=== PATIENT | male | born 1930 | race Caucasian/White ===

== ENCOUNTER 2018-07-31 13:02 | Inpatient (IN) ==
[2018-07-31 14:08] LABS: Basophils % 0.2 % (0.0-0.8); Eosinophils % 0.1 % (0.00-10.9); Hematocrit 44.3 VOL% (42.0-52.0); Hemoglobin 14.3 GM/DL (14.0-18.0); Immature Granulocytes % 0.4 %; Immature Granulocytes Absolute 0.05 #; Lymphocytes % 8.2 % (21.2-54.2); Mean Corpuscular HGB Conc 32.3 GM/DL (32-36); Mean Corpuscular Hemoglobin 31 PG (27-34); Mean Corpuscular Volume 96.9 FL (87-102); Mean Platelet Volume 11.5 FL (9.6-12.0); Monocytes # 1.8 10*3/uL (0.11-0.8); Monocytes % 14.4 % (1.7-12.7); Neutrophils # 9.8 10*3/uL (1.4-7.4); Neutrophils % 76.7 % (38.7-73.9); Platelet Count 106 T/CUMM (130-400); Red Blood Count 4.57 MC/CUMM (3.8-5.5); Red Cell Distribution Width 14.1 % (9.3-17.3); White Blood Count 12.8 T/CUMM (4-12)
[2018-07-31 14:33] LABS: Albumin 2.6 G/DL (3.4-5.0); Bilirubin,Total 1.3 MG/DL (0.2-1.0); Calcium 9.7 MG/DL (8.5-10.1); Osmolality,Calculated 286.4 MOS/KG (273-304); Total Protein 6.7 G/DL (6.4-8.3)
[2018-07-31] MEDS ORDERED: ACETAMINOPHEN 325 MG TABLET PO PRN (14:53)
[2018-07-31] MEDS ORDERED: ONDANSETRON 4 MG/2 ML VIAL IV PRN (14:53)
[2018-07-31] MEDS: IPRATROPIUM 500 MCG/2.5 ML NEB RESP TX SCH (21:50)
[2018-07-31] MEDS: BUDESONIDE 0.5 MG/2 ML NEB RESP TX SCH (21:50)
[2018-07-31] MEDS: FORMOTEROL 20 MCG/2 ML NEB RESP TX SCH (21:50)
[2018-07-31] MEDS: DOCUSATE SODIUM 100 MG CAPSULE PO SCH (22:15)
[2018-07-31] MEDS: TOLTERODINE LA 4 MG CAPSULE PO SCH (22:15)
[2018-07-31] MEDS: DONEPEZIL 10 MG TABLET PO SCH (22:15)
[2018-07-31] MEDS: SIMVASTATIN 40 MG TABLET PO SCH (22:15)
[2018-07-31] MEDS: cycloSPORINE OPH EMUL 1 VIAL BOTH EYES SCH (22:16)
[2018-07-31] MEDS: MEMANTINE 10 MG TABLET PO SCH (22:16)
[2018-08-01 05:49] LABS: Basophils % 0.3 % (0.0-0.8); Eosinophils # 0.1 10*3/uL (0.0-0.87); Eosinophils % 0.5 % (0.00-10.9); Hematocrit 39.8 VOL% (42.0-52.0); Hemoglobin 12.8 GM/DL (14.0-18.0); Immature Granulocytes % 0.6 %; Immature Granulocytes Absolute 0.06 #; Lymphocytes # 1.3 10*3/uL (1.4-4.0); Lymphocytes % 12.2 % (21.2-54.2); Mean Corpuscular HGB Conc 32.2 GM/DL (32-36); Mean Corpuscular Hemoglobin 31 PG (27-34); Mean Corpuscular Volume 96.6 FL (87-102); Mean Platelet Volume 12.5 FL (9.6-12.0); Monocytes # 1.5 10*3/uL (0.11-0.8); Monocytes % 14.2 % (1.7-12.7); Neutrophils # 7.8 10*3/uL (1.4-7.4); Neutrophils % 72.2 % (38.7-73.9); Platelet Count 111 T/CUMM (130-400); Red Blood Count 4.12 MC/CUMM (3.8-5.5); Red Cell Distribution Width 13.9 % (9.3-17.3); White Blood Count 10.8 T/CUMM (4-12)
[2018-08-01 06:15] LABS: Calcium 9.2 MG/DL (8.5-10.1); Osmolality,Calculated 290.3 MOS/KG (273-304); Potassium 3.9 MMOL/L (3.5-5.1); Risk Ratio 5.05; Thyroid Stimulating Hormone 1.19 uIU/ml (0.358-3.74); VLDL CHOLESTEROL 18.4 MG/DL
[2018-08-01] MEDS: FORMOTEROL 20 MCG/2 ML NEB RESP TX SCH ×2 (07:15→19:36)
[2018-08-01] MEDS: IPRATROPIUM 500 MCG/2.5 ML NEB RESP TX SCH (07:15)
[2018-08-01] MEDS: BUDESONIDE 0.5 MG/2 ML NEB RESP TX SCH ×2 (07:15→19:36)
[2018-08-01] MEDS: DOCUSATE SODIUM 100 MG CAPSULE PO SCH ×2 (10:42→22:26)
[2018-08-01] MEDS: CLOPIDOGREL 75 MG TABLET PO SCH (10:42)
[2018-08-01] MEDS: PANTOPRAZOLE 40 MG TABLET PO SCH (10:43)
[2018-08-01] MEDS: LORATADINE 10 MG TABLET PO SCH (10:43)
[2018-08-01] MEDS: MEMANTINE 10 MG TABLET PO SCH ×2 (10:43→22:27)
[2018-08-01] MEDS: FELODIPINE 2.5 MG TABLET PO SCH (10:44)
[2018-08-01] MEDS: cycloSPORINE OPH EMUL 1 VIAL BOTH EYES SCH ×2 (10:44→22:27)
[2018-08-01] MEDS: FLUoxetine 20 MG CAPSULE PO SCH (10:44)
[2018-08-01 15:51] LABS: Apearance,Urine CLEAR (Clear); Bacteria,Urine Occasional /HPF (Few); Bilirubin,Urine Negative (Negative); Blood, Urine Moderate mg/dL (Negative); Glucose,Urine (UA) Negative (Negative); Ketones,Urine Negative (Negative); Mucus,Urine Occasional /LPF (Occasional); Nitrite,Urine Negative (Negative); Protein,Urine Negative; RBC,Urine 9 /HPF (0-4); Urine Color Yellow (Yellow); Urine Specific Gravity 1.019 (1.001-1.035); WBC,Urine 1 /HPF (0-6)
[2018-08-01] MEDS: DONEPEZIL 10 MG TABLET PO SCH (22:26)
[2018-08-01] MEDS: SIMVASTATIN 40 MG TABLET PO SCH (22:27)
[2018-08-01] MEDS: TOLTERODINE LA 4 MG CAPSULE PO SCH (22:27)
[2018-08-02 05:11] LABS: Basophils % 0.3 % (0.0-0.8); Eosinophils # 0.1 10*3/uL (0.0-0.87); Eosinophils % 0.9 % (0.00-10.9); Hematocrit 41.8 VOL% (42.0-52.0); Hemoglobin 13.7 GM/DL (14.0-18.0); Immature Granulocytes % 0.5 %; Immature Granulocytes Absolute 0.05 #; Lymphocytes # 1.6 10*3/uL (1.4-4.0); Lymphocytes % 15.3 % (21.2-54.2); Mean Corpuscular HGB Conc 32.8 GM/DL (32-36); Mean Corpuscular Hemoglobin 32 PG (27-34); Mean Corpuscular Volume 97.7 FL (87-102); Mean Platelet Volume 11.7 FL (9.6-12.0); Monocytes # 1.6 10*3/uL (0.11-0.8); Monocytes % 15.4 % (1.7-12.7); Neutrophils # 7.2 10*3/uL (1.4-7.4); Neutrophils % 67.6 % (38.7-73.9); Platelet Count 102 T/CUMM (130-400); Red Blood Count 4.28 MC/CUMM (3.8-5.5); Red Cell Distribution Width 13.9 % (9.3-17.3); White Blood Count 10.6 T/CUMM (4-12)
[2018-08-02 05:28] LABS: Calcium 9.8 MG/DL (8.5-10.1); Osmolality,Calculated 287.5 MOS/KG (273-304); Potassium 4.2 MMOL/L (3.5-5.1)
[2018-08-02] MEDS: BUDESONIDE 0.5 MG/2 ML NEB RESP TX SCH ×2 (07:11→19:25)
[2018-08-02] MEDS: FORMOTEROL 20 MCG/2 ML NEB RESP TX SCH ×2 (07:11→19:25)
[2018-08-02] MEDS: LORATADINE 10 MG TABLET PO SCH (08:55)
[2018-08-02] MEDS: MEMANTINE 10 MG TABLET PO SCH ×2 (08:55→21:39)
[2018-08-02] MEDS: PANTOPRAZOLE 40 MG TABLET PO SCH (08:55)
[2018-08-02] MEDS: CLOPIDOGREL 75 MG TABLET PO SCH (08:55)
[2018-08-02] MEDS: FLUoxetine 20 MG CAPSULE PO SCH (08:55)
[2018-08-02] MEDS: FELODIPINE 2.5 MG TABLET PO SCH (08:55)
[2018-08-02] MEDS: DOCUSATE SODIUM 100 MG CAPSULE PO SCH ×2 (08:56→21:39)
[2018-08-02] MEDS: cycloSPORINE OPH EMUL 1 VIAL BOTH EYES SCH ×2 (08:56→21:39)
[2018-08-02] MEDS: SIMVASTATIN 40 MG TABLET PO SCH (21:39)
[2018-08-02] MEDS: DONEPEZIL 10 MG TABLET PO SCH (21:39)
[2018-08-02] MEDS: TOLTERODINE LA 4 MG CAPSULE PO SCH (21:39)
[2018-08-03 04:51] LABS: Basophils % 0.2 % (0.0-0.8); Eosinophils % 0.2 % (0.00-10.9); Hematocrit 39.9 VOL% (42.0-52.0); Hemoglobin 13.2 GM/DL (14.0-18.0); Immature Granulocytes % 0.8 %; Lymphocytes # 1.4 10*3/uL (1.4-4.0); Lymphocytes % 11.6 % (21.2-54.2); Mean Corpuscular HGB Conc 33.1 GM/DL (32-36); Mean Corpuscular Hemoglobin 31 PG (27-34); Mean Platelet Volume 11.6 FL (9.6-12.0); Monocytes # 1.7 10*3/uL (0.11-0.8); Monocytes % 13.9 % (1.7-12.7); Neutrophils # 9.1 10*3/uL (1.4-7.4); Neutrophils % 73.3 % (38.7-73.9); Platelet Count 107 T/CUMM (130-400); Red Cell Distribution Width 13.7 % (9.3-17.3); White Blood Count 12.4 T/CUMM (4-12)
[2018-08-03 05:24] LABS: Calcium 9.6 MG/DL (8.5-10.1); Osmolality,Calculated 294.1 MOS/KG (273-304); Potassium 4.2 MMOL/L (3.5-5.1)
[2018-08-03] MEDS: BUDESONIDE 0.5 MG/2 ML NEB RESP TX SCH (06:58)
[2018-08-03] MEDS: FORMOTEROL 20 MCG/2 ML NEB RESP TX SCH (06:58)
[2018-08-03] MEDS: FLUoxetine 20 MG CAPSULE PO SCH (09:00)
[2018-08-03] MEDS: LORATADINE 10 MG TABLET PO SCH (09:00)
[2018-08-03] MEDS: FELODIPINE 2.5 MG TABLET PO SCH (09:00)
[2018-08-03] MEDS: DOCUSATE SODIUM 100 MG CAPSULE PO SCH (09:00)
[2018-08-03] MEDS: PANTOPRAZOLE 40 MG TABLET PO SCH (09:00)
[2018-08-03] MEDS: CLOPIDOGREL 75 MG TABLET PO SCH (09:00)
[2018-08-03] MEDS: cycloSPORINE OPH EMUL 1 VIAL BOTH EYES SCH (09:01)
[2018-08-03] MEDS: MEMANTINE 10 MG TABLET PO SCH (09:01)
[2018-08-03 12:00] VITALS: BP 110/72
== END 2018-08-03 12:07 | DRG 558 ==
LOC: EDUNIT# → EDBD → N.ED 13:02 → N.EDINP 14:52 → N.2E 16:39
PROVIDERS: ADMIT Family Medicine; ATTEND Family Medicine

== ENCOUNTER 2018-11-14 12:48 | Inpatient (IN) ==
[2018-11-14] MEDS ORDERED: LEVOFLOXACIN INJ 750 MG in PREMIX 1 EACH IV STA (13:43)
[2018-11-14 13:49] LABS: Basophils % 0.3 % (0.0-0.8); Eosinophils % 0.1 % (0.00-10.9); Hematocrit 42.3 VOL% (42.0-52.0); Hemoglobin 13.2 GM/DL (14.0-18.0); Immature Granulocytes % 0.8 %; Immature Granulocytes Absolute 0.11 #; Lymphocytes # 1.4 10*3/uL (1.4-4.0); Lymphocytes % 10.5 % (21.2-54.2); Mean Corpuscular HGB Conc 31.2 GM/DL (32-36); Mean Corpuscular Volume 94.8 FL (87-102); Mean Platelet Volume 13.1 FL (9.6-12.0); Monocytes % 9.4 % (1.7-12.7); Neutrophils % 78.9 % (38.7-73.9); Platelet Count 100 T/CUMM (130-400); Red Blood Count 4.46 MC/CUMM (3.8-5.5); Red Cell Distribution Width 16.1 % (9.3-17.3); White Blood Count 13.5 T/CUMM (4-12)
[2018-11-14 14:02] LABS: Albumin 2.5 G/DL (3.4-5.0); Bilirubin,Total 0.9 MG/DL (0.2-1.0); Calcium 5.9 MG/DL (8.5-10.1); Osmolality,Calculated 285.4 MOS/KG (273-304); Total Protein 6.6 G/DL (6.4-8.3)
[2018-11-14 14:16] LABS: Lymphocytes 10 % (20-55); Platelet Estimate Adequate; Segmented Neutrophils 84 % (50-85)
[2018-11-14 14:17] LABS: Total Cells Counted 100
[2018-11-14] MEDS ORDERED: ENOXAPARIN 30 MG/0.3 ML SYRINGE SUBCUT STA (14:18)
[2018-11-14] MEDS ORDERED: ASPIRIN CHEW 81 MG TABLET PO STA (14:19)
[2018-11-14] MEDS ORDERED: fentaNYL 100 MCG/2 ML VIAL ONE (14:20)
[2018-11-14] MEDS ORDERED: HEPARIN/NACL 0.9% 2 UNITS/ML 1,000 ML IV ONE (14:20)
[2018-11-14] MEDS ORDERED: LIDOCAINE 1%/EPI INJ 20 ML VIAL ONE (14:20)
[2018-11-14] MEDS ORDERED: HEPARIN/NACL 0.9% 2 UNITS/ML 500 ML IV ONE (14:22)
[2018-11-14] MEDS ORDERED: ASPIRIN 325 MG TABLET ONE (14:35)
[2018-11-14] MEDS ORDERED: ENOXAPARIN 60 MG/0.6 ML SYRINGE ONE (14:35)
[2018-11-14] MEDS ORDERED: TICAGRELOR 90 MG TABLET ONE (14:56)
[2018-11-14] MEDS ORDERED: MORPHINE 4 MG/1 ML VIAL IV PRN (15:13)
[2018-11-14] MEDS ORDERED: ZALEPLON 5 MG CAPSULE PO PRN (15:13)
[2018-11-14] MEDS ORDERED: ACETAMINOPHEN 325 MG TABLET PO PRN (15:13)
[2018-11-14] MEDS ORDERED: MAGNESIUM SULF RIDER 2 GM in PREMIX 1 EACH IV PRN (15:13)
[2018-11-14] MEDS ORDERED: ONDANSETRON 4 MG/2 ML VIAL IV PRN (15:13)
[2018-11-14] MEDS ORDERED: MAGNESIUM SULF RIDER 4 GM in PREMIX 1 EACH IV PRN (15:13)
[2018-11-14] MEDS ORDERED: SODIUM CHLORIDE 0.9% 1,000 ML IV SCH (16:00)
[2018-11-14] MEDS ORDERED: ENOXAPARIN 30 MG/0.3 ML SYRINGE SUBCUT SCH (16:00)
[2018-11-14 16:38] LABS: Apearance,Urine CLOUDY (Clear); Bacteria,Urine Many /HPF (Few); Bilirubin,Urine Negative (Negative); Blood, Urine Large mg/dL (Negative); Glucose,Urine (UA) Negative (Negative); Ketones,Urine Negative (Negative); Mucus,Urine Occasional /LPF (Occasional); Nitrite,Urine Negative (Negative); Protein,Urine 100 MG/DL; RBC,Urine 51 /HPF (0-4); Urine Specific Gravity 1.013 (1.001-1.035); Urine Urobilinogen < 2.0 EU/DL (0.2-1.0); WBC,Urine 152 /HPF (0-6)
[2018-11-14 16:44] LABS: Urine Color Yellow (Yellow)
[2018-11-14] MEDS ORDERED: METOPROLOL TARTRATE 25 MG TABLET PO SCH (21:00)
[2018-11-15 04:39] LABS: Basophils % 0.2 % (0.0-0.8); Eosinophils % 0.2 % (0.00-10.9); Hematocrit 39.9 VOL% (42.0-52.0); Hemoglobin 12.7 GM/DL (14.0-18.0); Immature Granulocytes Absolute 0.14 #; Lymphocytes % 7.6 % (21.2-54.2); Mean Corpuscular HGB Conc 31.8 GM/DL (32-36); Mean Corpuscular Volume 93.2 FL (87-102); Mean Platelet Volume 11.9 FL (9.6-12.0); Monocytes % 12.2 % (1.7-12.7); Neutrophils % 78.8 % (38.7-73.9); Red Blood Count 4.28 MC/CUMM (3.8-5.5); Red Cell Distribution Width 15.9 % (9.3-17.3); White Blood Count 13.4 T/CUMM (4-12)
[2018-11-15 04:55] LABS: Platelet Count 89 T/CUMM (130-400)
[2018-11-15 05:07] LABS: Bilirubin,Total 1.3 MG/DL (0.2-1.0); CKMB % 12.6 %; Calcium 9.2 MG/DL (8.5-10.1); Osmolality,Calculated 291.8 MOS/KG (273-304); Risk Ratio 8.68; Total Protein 4.9 G/DL (6.4-8.3); VLDL CHOLESTEROL 34.6 MG/DL
[2018-11-15 05:46] LABS: Troponin I 5.52 NG/ML (0.00-0.045)
[2018-11-15 06:04] LABS: Platelet Estimate Decreased
[2018-11-15 06:05] LABS: Hypochromasia Slight
[2018-11-15] MEDS ORDERED: PANTOPRAZOLE 40 MG TABLET PO SCH (09:00)
[2018-11-15] MEDS ORDERED: ASPIRIN EC 81 MG TABLET PO SCH (09:00)
[2018-11-15] MEDS: CARVEDILOL 3.125 MG TABLET PO SCH ×2 (09:25→21:32)
[2018-11-15] MEDS: TICAGRELOR 90 MG TABLET PO SCH ×2 (09:25→21:32)
[2018-11-15] MEDS: MEMANTINE 5 MG TABLET PO SCH (09:25)
[2018-11-15] MEDS: LORATADINE 10 MG TABLET PO SCH (09:26)
[2018-11-15] MEDS: cycloSPORINE OPH EMUL 1 VIAL BOTH EYES SCH (09:35)
[2018-11-15] MEDS ORDERED: ALBUTEROL/IPRATROPIUM 3 ML NEB RESP TX PRN (10:02)
[2018-11-15] MEDS ORDERED: FUROSEMIDE 40 MG/4 ML VIAL IV ONE (10:02)
[2018-11-15] MEDS ORDERED: SPIRONOLACTONE 25 MG TABLET PO SCH (10:30)
[2018-11-15] MEDS: LIDOCAINE 5% PATCH TRANSDERM SCH (12:36)
[2018-11-15] MEDS: cefTRIAXone 1,000 MG in SYRINGE 1 EACH IV SCH (12:37)
[2018-11-15] MEDS ORDERED: FUROSEMIDE 40 MG/4 ML VIAL ONE (13:39)
[2018-11-15] MEDS ORDERED: DEXTROSE 50% 25 GM/50 ML VIAL IV PRN (13:56)
[2018-11-15] MEDS ORDERED: GLUCAGON 1 MG VIAL IM PRN (13:56)
[2018-11-15] MEDS: APIXABAN 5 MG TABLET PO SCH ×2 (14:11→21:31)
[2018-11-15] MEDS: INSULIN REGULAR 100 UNIT/ML SUBCUT SCH (18:05)
[2018-11-15] MEDS ORDERED: MEMANTINE 21 MG PO SCH (21:00)
[2018-11-15] MEDS ORDERED: DONEPEZIL 10 MG TABLET PO SCH (21:00)
[2018-11-15] MEDS: PARoxetine 10 MG TABLET PO SCH (21:31)
[2018-11-15] MEDS: ATORVASTATIN 80 MG TABLET PO SCH (21:31)
[2018-11-15] MEDS: TOLTERODINE LA 4 MG CAPSULE PO SCH (21:31)
[2018-11-15] MEDS: MEMANTINE 10 MG TABLET PO SCH (21:32)
[2018-11-15] MEDS: FAMOTIDINE 20 MG TABLET PO SCH (21:32)
[2018-11-16] MEDS: cycloSPORINE OPH EMUL 1 VIAL BOTH EYES SCH ×3 (00:13→21:33)
[2018-11-16] MEDS: INSULIN REGULAR 100 UNIT/ML SUBCUT SCH ×5 (00:24→23:54)
[2018-11-16 05:47] LABS: Prealbumin 7.1 MG/DL (20-40)
[2018-11-16] MEDS: LIDOCAINE 5% PATCH TRANSDERM SCH (09:16)
[2018-11-16] MEDS: MEMANTINE 5 MG TABLET PO SCH (09:17)
[2018-11-16] MEDS: APIXABAN 5 MG TABLET PO SCH ×2 (09:17→21:18)
[2018-11-16] MEDS: LORATADINE 10 MG TABLET PO SCH (09:17)
[2018-11-16] MEDS: SPIRONOLACTONE 25 MG TABLET PO SCH (09:17)
[2018-11-16] MEDS: TICAGRELOR 90 MG TABLET PO SCH (09:17)
[2018-11-16] MEDS: CARVEDILOL 3.125 MG TABLET PO SCH ×2 (09:17→21:17)
[2018-11-16] MEDS: cefTRIAXone 1,000 MG in SYRINGE 1 EACH IV SCH (09:45)
[2018-11-16 10:04] LABS: Basophils % 0.1 % (0.0-0.8); Eosinophils # 0.1 10*3/uL (0.0-0.87); Eosinophils % 0.7 % (0.00-10.9); Hematocrit 39.1 VOL% (42.0-52.0); Hemoglobin 12.5 GM/DL (14.0-18.0); Immature Granulocytes % 1.1 %; Immature Granulocytes Absolute 0.12 #; Lymphocytes % 8.9 % (21.2-54.2); Mean Corpuscular Volume 93.8 FL (87-102); Mean Platelet Volume 12.5 FL (9.6-12.0); Monocytes % 13.9 % (1.7-12.7); Neutrophils % 75.3 % (38.7-73.9); Platelet Count 127 T/CUMM (130-400); Red Blood Count 4.17 MC/CUMM (3.8-5.5); Red Cell Distribution Width 16.1 % (9.3-17.3); White Blood Count 11.1 T/CUMM (4-12)
[2018-11-16 10:12] LABS: Mucus,Urine Many /LPF (Occasional); RBC,Urine 19881 /HPF (0-4); WBC,Urine 211 /HPF (0-6)
[2018-11-16 10:14] LABS: Apearance,Urine Turbid (Clear); Bilirubin,Urine Negative (Negative); Blood, Urine Large mg/dL (Negative); Glucose,Urine (UA) Negative (Negative); Ketones,Urine Negative (Negative); Nitrite,Urine Negative (Negative); Protein,Urine 2+ MG/DL; Urine Color Brown (Yellow); Urine Urobilinogen < 2.0 EU/DL (0.2-1.0)
[2018-11-16 10:23] LABS: Calcium 9.3 MG/DL (8.5-10.1); Osmolality,Calculated 299.7 MOS/KG (273-304)
[2018-11-16] MEDS: ALBUTEROL/IPRATROPIUM 3 ML NEB RESP TX SCH ×4 (10:59→22:52)
[2018-11-16] MEDS ORDERED: cefTRIAXone 2,000 MG in SYRINGE 1 EACH IV SCH (11:00)
[2018-11-16 11:05] LABS: % Iron Saturation 10.6 % (18-50); Ferritin 303.7 ng/ml (26-388)
[2018-11-16 11:19] LABS: Folate 9.1 NG/ML (5.4-24.0)
[2018-11-16] MEDS ORDERED: cefTRIAXone 1,000 MG in SYRINGE 1 EACH IV ONE (12:03)
[2018-11-16] MEDS: POTASSIUM CHLORIDE RIDER 10 MEQ in PREMIX 1 EACH IV PRN ×3 (15:25→21:35)
[2018-11-16] MEDS: LEVOFLOXACIN INJ 750 MG in PREMIX 1 EACH IV SCH (17:44)
[2018-11-16] MEDS: PIPERACILLIN/TAZOBACTAM 3,375 MG in SODIUM CHLORIDE 0.9% 100 ML IV SCH (21:17)
[2018-11-16] MEDS: PARoxetine 10 MG TABLET PO SCH (21:17)
[2018-11-16] MEDS: ATORVASTATIN 80 MG TABLET PO SCH (21:17)
[2018-11-16] MEDS: FAMOTIDINE 20 MG TABLET PO SCH (21:18)
[2018-11-16] MEDS: MEMANTINE 10 MG TABLET PO SCH (21:34)
[2018-11-16] MEDS: TOLTERODINE LA 4 MG CAPSULE PO SCH (21:34)
[2018-11-17] MEDS: ALBUTEROL/IPRATROPIUM 3 ML NEB RESP TX SCH ×5 (02:33→21:04)
[2018-11-17] MEDS: PIPERACILLIN/TAZOBACTAM 3,375 MG in SODIUM CHLORIDE 0.9% 100 ML IV SCH ×3 (03:50→21:05)
[2018-11-17 05:22] LABS: Basophils % 0.2 % (0.0-0.8); Eosinophils # 0.3 10*3/uL (0.0-0.87); Eosinophils % 2.9 % (0.00-10.9); Hematocrit 36.7 VOL% (42.0-52.0); Hemoglobin 11.4 GM/DL (14.0-18.0); Immature Granulocytes Absolute 0.09 #; Lymphocytes # 1.2 10*3/uL (1.4-4.0); Lymphocytes % 13.6 % (21.2-54.2); Mean Corpuscular HGB Conc 31.1 GM/DL (32-36); Mean Corpuscular Volume 95.3 FL (87-102); Mean Platelet Volume 11.9 FL (9.6-12.0); Monocytes % 11.8 % (1.7-12.7); Neutrophils % 70.5 % (38.7-73.9); Platelet Count 148 T/CUMM (130-400); Red Blood Count 3.85 MC/CUMM (3.8-5.5); Red Cell Distribution Width 16.5 % (9.3-17.3); White Blood Count 8.9 T/CUMM (4-12)
[2018-11-17] MEDS: INSULIN REGULAR 100 UNIT/ML SUBCUT SCH ×3 (05:25→18:19)
[2018-11-17 06:01] LABS: Calcium 9.4 MG/DL (8.5-10.1); Osmolality,Calculated 301.6 MOS/KG (273-304)
[2018-11-17 06:15] LABS: Albumin 1.8 G/DL (3.4-5.0); Bilirubin,Total 0.8 MG/DL (0.2-1.0); Calcium 9.5 MG/DL (8.5-10.1); Free T4 (Free Thyroxine) 1.22 NG/DL (0.76-1.46); Osmolality,Calculated 302.4 MOS/KG (273-304); Thyroid Stimulating Hormone 1.18 uIU/ml (0.358-3.74); Total Protein 5.3 G/DL (6.4-8.3)
[2018-11-17] MEDS ORDERED: APIXABAN 5 MG TABLET PO SCH (09:00)
[2018-11-17] MEDS: MEMANTINE 5 MG TABLET PO SCH (09:07)
[2018-11-17] MEDS: LORATADINE 10 MG TABLET PO SCH (09:07)
[2018-11-17] MEDS: SPIRONOLACTONE 25 MG TABLET PO SCH (09:07)
[2018-11-17] MEDS: cycloSPORINE OPH EMUL 1 VIAL BOTH EYES SCH ×2 (09:07→21:08)
[2018-11-17] MEDS: CARVEDILOL 3.125 MG TABLET PO SCH ×2 (09:07→21:08)
[2018-11-17] MEDS: LIDOCAINE 5% PATCH TRANSDERM SCH (09:08)
[2018-11-17] MEDS ORDERED: cefTRIAXone 2,000 MG in SYRINGE 1 EACH IV SCH (11:00)
[2018-11-17] MEDS: CLOPIDOGREL 75 MG TABLET PO SCH (11:57)
[2018-11-17] MEDS: LEVOFLOXACIN INJ 750 MG in PREMIX 1 EACH IV SCH (16:15)
[2018-11-17] MEDS: SACUBITRIL/VALSARTAN 49-51 MG TABLET PO SCH (21:08)
[2018-11-17] MEDS: APIXABAN 5 MG TABLET PO SCH (21:08)
[2018-11-17] MEDS: TOLTERODINE LA 4 MG CAPSULE PO SCH (21:08)
[2018-11-17] MEDS: PARoxetine 10 MG TABLET PO SCH (21:08)
[2018-11-17] MEDS: MEMANTINE 10 MG TABLET PO SCH (21:08)
[2018-11-17] MEDS: ATORVASTATIN 80 MG TABLET PO SCH (21:08)
[2018-11-17] MEDS: FAMOTIDINE 20 MG TABLET PO SCH (21:08)
[2018-11-18] MEDS: ALBUTEROL/IPRATROPIUM 3 ML NEB RESP TX SCH ×7 (01:08→23:23)
[2018-11-18] MEDS: INSULIN REGULAR 100 UNIT/ML SUBCUT SCH ×4 (02:16→17:50)
[2018-11-18] MEDS: PIPERACILLIN/TAZOBACTAM 3,375 MG in SODIUM CHLORIDE 0.9% 100 ML IV SCH ×2 (04:03→12:28)
[2018-11-18 05:24] LABS: Basophils % 0.3 % (0.0-0.8); Eosinophils # 0.2 10*3/uL (0.0-0.87); Eosinophils % 1.5 % (0.00-10.9); Hematocrit 35.5 VOL% (42.0-52.0); Immature Granulocytes % 0.8 %; Lymphocytes # 1.6 10*3/uL (1.4-4.0); Lymphocytes % 12.9 % (21.2-54.2); Mean Corpuscular Volume 96.7 FL (87-102); Mean Platelet Volume 11.9 FL (9.6-12.0); Neutrophils % 75.5 % (38.7-73.9); Platelet Count 184 T/CUMM (130-400); Red Blood Count 3.67 MC/CUMM (3.8-5.5); Red Cell Distribution Width 16.4 % (9.3-17.3); White Blood Count 12.3 T/CUMM (4-12)
[2018-11-18 05:47] LABS: Albumin 1.9 G/DL (3.4-5.0); Bilirubin,Total 0.5 MG/DL (0.2-1.0); Calcium 9.4 MG/DL (8.5-10.1); Osmolality,Calculated 305.3 MOS/KG (273-304); Total Protein 5.3 G/DL (6.4-8.3)
[2018-11-18] MEDS: LIDOCAINE 5% PATCH TRANSDERM SCH (09:10)
[2018-11-18] MEDS: SACUBITRIL/VALSARTAN 49-51 MG TABLET PO SCH ×2 (10:19→21:15)
[2018-11-18] MEDS: APIXABAN 5 MG TABLET PO SCH ×2 (10:20→21:14)
[2018-11-18] MEDS: LORATADINE 10 MG TABLET PO SCH (10:20)
[2018-11-18] MEDS: CLOPIDOGREL 75 MG TABLET PO SCH (10:20)
[2018-11-18] MEDS: CARVEDILOL 3.125 MG TABLET PO SCH ×2 (10:20→21:14)
[2018-11-18] MEDS: MEMANTINE 5 MG TABLET PO SCH (10:21)
[2018-11-18] MEDS: cycloSPORINE OPH EMUL 1 VIAL BOTH EYES SCH ×2 (10:22→21:15)
[2018-11-18] MEDS: SPIRONOLACTONE 25 MG TABLET PO SCH (10:23)
[2018-11-18] MEDS ORDERED: BELLADONNA/OPIUM 30 MG SUPP RECTAL PRN (14:40)
[2018-11-18] MEDS: cefTRIAXone 2,000 MG in SYRINGE 1 EACH IV SCH (17:15)
[2018-11-18] MEDS: MEMANTINE 10 MG TABLET PO SCH (21:14)
[2018-11-18] MEDS: FAMOTIDINE 20 MG TABLET PO SCH (21:14)
[2018-11-18] MEDS: PARoxetine 10 MG TABLET PO SCH (21:14)
[2018-11-18] MEDS: TOLTERODINE LA 4 MG CAPSULE PO SCH (21:15)
[2018-11-18] MEDS: ATORVASTATIN 80 MG TABLET PO SCH (21:15)
[2018-11-19] MEDS: INSULIN REGULAR 100 UNIT/ML SUBCUT SCH ×4 (00:48→18:10)
[2018-11-19] MEDS: ALBUTEROL/IPRATROPIUM 3 ML NEB RESP TX SCH ×6 (03:00→22:47)
[2018-11-19 05:33] LABS: Basophils % 0.3 % (0.0-0.8); Eosinophils # 0.4 10*3/uL (0.0-0.87); Eosinophils % 2.7 % (0.00-10.9); Hematocrit 37.3 VOL% (42.0-52.0); Hemoglobin 11.7 GM/DL (14.0-18.0); Immature Granulocytes % 0.9 %; Immature Granulocytes Absolute 0.12 #; Lymphocytes # 1.8 10*3/uL (1.4-4.0); Lymphocytes % 13.9 % (21.2-54.2); Mean Corpuscular HGB Conc 31.4 GM/DL (32-36); Mean Corpuscular Volume 95.6 FL (87-102); Mean Platelet Volume 11.6 FL (9.6-12.0); Monocytes % 8.5 % (1.7-12.7); Neutrophils % 73.7 % (38.7-73.9); Platelet Count 213 T/CUMM (130-400); Red Cell Distribution Width 16.5 % (9.3-17.3); White Blood Count 13.2 T/CUMM (4-12)
[2018-11-19 05:55] LABS: Albumin 2.1 G/DL (3.4-5.0); Bilirubin,Total 0.5 MG/DL (0.2-1.0); Calcium 9.8 MG/DL (8.5-10.1); Osmolality,Calculated 298.3 MOS/KG (273-304); Total Protein 5.9 G/DL (6.4-8.3)
[2018-11-19] MEDS: APIXABAN 5 MG TABLET PO SCH ×2 (09:29→21:42)
[2018-11-19] MEDS: SACUBITRIL/VALSARTAN 49-51 MG TABLET PO SCH ×2 (09:29→21:41)
[2018-11-19] MEDS: LORATADINE 10 MG TABLET PO SCH (09:30)
[2018-11-19] MEDS: SPIRONOLACTONE 25 MG TABLET PO SCH (09:30)
[2018-11-19] MEDS: LIDOCAINE 5% PATCH TRANSDERM SCH (09:30)
[2018-11-19] MEDS: CARVEDILOL 3.125 MG TABLET PO SCH ×2 (09:30→21:41)
[2018-11-19] MEDS: CLOPIDOGREL 75 MG TABLET PO SCH (09:30)
[2018-11-19] MEDS: MEMANTINE 5 MG TABLET PO SCH (09:30)
[2018-11-19] MEDS: cycloSPORINE OPH EMUL 1 VIAL BOTH EYES SCH ×2 (10:33→21:42)
[2018-11-19] MEDS: cefTRIAXone 2,000 MG in SYRINGE 1 EACH IV SCH (17:49)
[2018-11-19] MEDS: PARoxetine 10 MG TABLET PO SCH (21:40)
[2018-11-19] MEDS: FAMOTIDINE 20 MG TABLET PO SCH (21:41)
[2018-11-19] MEDS: MEMANTINE 10 MG TABLET PO SCH (21:41)
[2018-11-19] MEDS: ATORVASTATIN 80 MG TABLET PO SCH (21:42)
[2018-11-20] MEDS: INSULIN REGULAR 100 UNIT/ML SUBCUT SCH ×4 (01:09→17:07)
[2018-11-20] MEDS: ALBUTEROL/IPRATROPIUM 3 ML NEB RESP TX SCH ×6 (03:01→23:15)
[2018-11-20 05:07] LABS: Basophils % 0.2 % (0.0-0.8); Eosinophils # 0.2 10*3/uL (0.0-0.87); Eosinophils % 1.5 % (0.00-10.9); Hematocrit 37.6 VOL% (42.0-52.0); Hemoglobin 11.7 GM/DL (14.0-18.0); Immature Granulocytes % 0.7 %; Immature Granulocytes Absolute 0.09 #; Lymphocytes # 1.8 10*3/uL (1.4-4.0); Lymphocytes % 14.3 % (21.2-54.2); Mean Corpuscular HGB Conc 31.1 GM/DL (32-36); Mean Corpuscular Volume 96.2 FL (87-102); Mean Platelet Volume 11.4 FL (9.6-12.0); Monocytes % 7.8 % (1.7-12.7); Neutrophils % 75.5 % (38.7-73.9); Platelet Count 246 T/CUMM (130-400); Red Blood Count 3.91 MC/CUMM (3.8-5.5); Red Cell Distribution Width 16.2 % (9.3-17.3); White Blood Count 12.8 T/CUMM (4-12)
[2018-11-20 05:43] LABS: Albumin 2.1 G/DL (3.4-5.0); Bilirubin,Total 0.4 MG/DL (0.2-1.0); Calcium 10.1 MG/DL (8.5-10.1); Osmolality,Calculated 296.6 MOS/KG (273-304); Total Protein 5.7 G/DL (6.4-8.3)
[2018-11-20] MEDS ORDERED: BISACODYL 5 MG TABLET PO ONE (07:29)
[2018-11-20] MEDS ORDERED: cefTRIAXone 1,000 MG in SYRINGE 1 EACH IV ONE (07:30)
[2018-11-20] MEDS ORDERED: MAGNESIUM HYDROXIDE SUSP 30 ML UDCUP PO PRN (07:31)
[2018-11-20] MEDS ORDERED: SODIUM PHOSPHATE ENEMA 133 ML BOTTLE RECTAL ONE (07:31)
[2018-11-20] MEDS: SACUBITRIL/VALSARTAN 49-51 MG TABLET PO SCH ×2 (09:32→20:56)
[2018-11-20] MEDS: LIDOCAINE 5% PATCH TRANSDERM SCH (09:32)
[2018-11-20] MEDS: LORATADINE 10 MG TABLET PO SCH (09:33)
[2018-11-20] MEDS: SPIRONOLACTONE 25 MG TABLET PO SCH (09:33)
[2018-11-20] MEDS: APIXABAN 5 MG TABLET PO SCH ×2 (09:33→20:57)
[2018-11-20] MEDS: MEMANTINE 5 MG TABLET PO SCH (09:33)
[2018-11-20] MEDS: CARVEDILOL 3.125 MG TABLET PO SCH ×2 (09:33→20:57)
[2018-11-20] MEDS: CLOPIDOGREL 75 MG TABLET PO SCH (09:34)
[2018-11-20] MEDS: cycloSPORINE OPH EMUL 1 VIAL BOTH EYES SCH ×2 (09:35→20:55)
[2018-11-20] MEDS: cefTRIAXone 2,000 MG in SYRINGE 1 EACH IV SCH (16:47)
[2018-11-20] MEDS: NYSTATIN 500,000 UNIT/5 ML UDCUP SWISH/SWAL SCH ×2 (17:11→20:56)
[2018-11-20] MEDS: ATORVASTATIN 80 MG TABLET PO SCH (20:56)
[2018-11-20] MEDS: PARoxetine 10 MG TABLET PO SCH (20:57)
[2018-11-20] MEDS: FAMOTIDINE 20 MG TABLET PO SCH (20:57)
[2018-11-20] MEDS: MEMANTINE 10 MG TABLET PO SCH (20:57)
[2018-11-21] MEDS: INSULIN REGULAR 100 UNIT/ML SUBCUT SCH ×4 (01:02→18:20)
[2018-11-21] MEDS: ALBUTEROL/IPRATROPIUM 3 ML NEB RESP TX SCH ×5 (03:25→20:05)
[2018-11-21 05:02] LABS: Basophils % 0.4 % (0.0-0.8); Eosinophils # 0.2 10*3/uL (0.0-0.87); Eosinophils % 1.6 % (0.00-10.9); Hematocrit 35.3 VOL% (42.0-52.0); Hemoglobin 11.3 GM/DL (14.0-18.0); Immature Granulocytes % 1.1 %; Immature Granulocytes Absolute 0.12 #; Lymphocytes # 2.4 10*3/uL (1.4-4.0); Lymphocytes % 22.9 % (21.2-54.2); Mean Corpuscular Volume 94.6 FL (87-102); Mean Platelet Volume 11.5 FL (9.6-12.0); Monocytes % 9.9 % (1.7-12.7); Neutrophils % 64.1 % (38.7-73.9); Platelet Count 256 T/CUMM (130-400); Red Blood Count 3.73 MC/CUMM (3.8-5.5); Red Cell Distribution Width 15.8 % (9.3-17.3); White Blood Count 10.7 T/CUMM (4-12)
[2018-11-21 05:16] LABS: Calcium 9.7 MG/DL (8.5-10.1); Osmolality,Calculated 299.3 MOS/KG (273-304)
[2018-11-21] MEDS ORDERED: cefTRIAXone 1,000 MG in SYRINGE 1 EACH IV ONE (06:00)
[2018-11-21] MEDS ORDERED: NEOMYCIN/POLYMYXIN IRRIG SOLN 1 ML AMP BLADDERIRR ONE (07:09)
[2018-11-21] MEDS ORDERED: LIDOCAINE 2% TOP JELLY 20 ML VIAL INTRAURETH ONE (07:23)
[2018-11-21] MEDS ORDERED: KETAMINE 500 MG/10 ML VIAL ONE (07:55)
[2018-11-21] MEDS ORDERED: PROPOFOL 200 MG/20 ML VIAL IV ONE (07:55)
[2018-11-21] MEDS ORDERED: fentaNYL 100 MCG/2 ML VIAL ONE (07:55)
[2018-11-21] MEDS ORDERED: ETOMIDATE 40 MG/20 ML VIAL IV ONE (07:55)
[2018-11-21] MEDS: SACUBITRIL/VALSARTAN 49-51 MG TABLET PO SCH ×2 (09:38→20:49)
[2018-11-21] MEDS: CLOPIDOGREL 75 MG TABLET PO SCH (09:38)
[2018-11-21] MEDS: APIXABAN 5 MG TABLET PO SCH ×2 (09:38→21:11)
[2018-11-21] MEDS: MEMANTINE 5 MG TABLET PO SCH (09:38)
[2018-11-21] MEDS: CARVEDILOL 3.125 MG TABLET PO SCH ×2 (09:39→21:11)
[2018-11-21] MEDS: SPIRONOLACTONE 25 MG TABLET PO SCH (09:39)
[2018-11-21] MEDS: NYSTATIN 500,000 UNIT/5 ML UDCUP SWISH/SWAL SCH ×4 (09:40→21:11)
[2018-11-21] MEDS: LORATADINE 10 MG TABLET PO SCH (09:40)
[2018-11-21] MEDS: LIDOCAINE 5% PATCH TRANSDERM SCH (09:47)
[2018-11-21] MEDS: cycloSPORINE OPH EMUL 1 VIAL BOTH EYES SCH ×2 (10:11→21:12)
[2018-11-21] MEDS: cefTRIAXone 2,000 MG in SYRINGE 1 EACH IV SCH (17:08)
[2018-11-21] MEDS: FAMOTIDINE 20 MG TABLET PO SCH (21:11)
[2018-11-21] MEDS: MEMANTINE 10 MG TABLET PO SCH (21:11)
[2018-11-21] MEDS: ATORVASTATIN 80 MG TABLET PO SCH (21:11)
[2018-11-21] MEDS: PARoxetine 10 MG TABLET PO SCH (21:12)
[2018-11-22] MEDS: INSULIN REGULAR 100 UNIT/ML SUBCUT SCH ×2 (00:24→06:10)
[2018-11-22] MEDS: ALBUTEROL/IPRATROPIUM 3 ML NEB RESP TX SCH ×5 (03:30→14:43)
[2018-11-22 06:28] LABS: Basophils % 0.3 % (0.0-0.8); Eosinophils # 0.2 10*3/uL (0.0-0.87); Eosinophils % 2.5 % (0.00-10.9); Hemoglobin 11.1 GM/DL (14.0-18.0); Immature Granulocytes % 0.6 %; Immature Granulocytes Absolute 0.05 #; Mean Corpuscular HGB Conc 31.7 GM/DL (32-36); Mean Corpuscular Volume 94.6 FL (87-102); Mean Platelet Volume 11.2 FL (9.6-12.0); Neutrophils % 62.6 % (38.7-73.9); Platelet Count 259 T/CUMM (130-400); Red Cell Distribution Width 15.6 % (9.3-17.3); White Blood Count 8.8 T/CUMM (4-12)
[2018-11-22 06:53] LABS: Calcium 9.9 MG/DL (8.5-10.1); Osmolality,Calculated 296.4 MOS/KG (273-304)
[2018-11-22] MEDS ORDERED: APIXABAN 5 MG TABLET PO SCH (09:00)
[2018-11-22] MEDS: SACUBITRIL/VALSARTAN 49-51 MG TABLET PO SCH (09:57)
[2018-11-22] MEDS: CARVEDILOL 3.125 MG TABLET PO SCH (09:58)
[2018-11-22] MEDS: SPIRONOLACTONE 25 MG TABLET PO SCH (09:58)
[2018-11-22] MEDS: CLOPIDOGREL 75 MG TABLET PO SCH (09:58)
[2018-11-22] MEDS: APIXABAN 5 MG TABLET PO SCH (09:59)
[2018-11-22] MEDS: NYSTATIN 500,000 UNIT/5 ML UDCUP SWISH/SWAL SCH (09:59)
[2018-11-22] MEDS: LIDOCAINE 5% PATCH TRANSDERM SCH (10:00)
[2018-11-22] MEDS: LORATADINE 10 MG TABLET PO SCH (10:00)
[2018-11-22] MEDS: MEMANTINE 5 MG TABLET PO SCH (10:00)
[2018-11-22] MEDS: cycloSPORINE OPH EMUL 1 VIAL BOTH EYES SCH (10:01)
[2018-11-22 12:06] VITALS: BP 130/62
[2018-11-22] MEDS ORDERED: DOCUSATE SODIUM 100 MG CAPSULE PO SCH (21:00)
== END 2018-11-22 14:59 | DRG 247 ==
LOC: EDBD → EDUNIT# → N.ED 12:48 → N.TELEN 14:45 → N.EDINP 14:48 → N.TELEN 17:39 → N.ICU 17:39 → N.TELEN 11-15 13:27 → N.ICU 11-15 13:41 → N.TELEN 11-15 14:28
PROVIDERS: ADMIT Internal Medicine Interventional Cardiology; ATTEND Internal Medicine Interventional Cardiology